=== PATIENT | male | born 1940 | race African-American/Black ===

== ENCOUNTER 2019-04-22 21:21 | Inpatient (IN) | payer MEDICARE, MEDICAID ==
[~2019-04-22] VITALS: Ht 182.9 cm; Wt 56.5 kg
[2019-04-22] MEDS ORDERED: ONDANSETRON HCL 4MG/2ML INJ IV STA (22:08)
[2019-04-22] MEDS ORDERED: MORPHINE SULFATE 4 MG/ML CPJ (NOT FOR IM USE) IV STA (22:08)
[2019-04-22] MEDS ORDERED: VANCOMYCIN 1 G PREMIX 200 ML IV ONE (22:15)
[2019-04-22] MEDS ORDERED: SODIUM CHLORIDE 0.9% 1000ML BAG (SEPSIS BOLUS) IV ONE (22:15)
[2019-04-22] MEDS ORDERED: PIPERACILLIN/TAZ 3.375G PREMIX 50 ML IV ONE (22:15)
[2019-04-22 22:49] LABS: BASOPHILS % 0.2 % (0.0-2.0); EOSINOPHILS % 0.9 % (0.0-5.0); HEMATOCRIT. 30.4 % (42.0-52.0); HEMOGLOBIN. 10.5 g/dL (14.0-18.0); LYMPHOCYTES % 26.5 % (20.0-50.0); MEAN CORPUSCULAR HEMOGLOBIN 34.1 pg (28.0-32.0); MEAN CORPUSCULAR VOLUME 98.5 fL (80.0-94.0); MONOCYTES % 12.5 % (2.0-8.0); NEUTROPHILS % 59.9 % (40.0-76.0); PLATELET 139 x1000/uL (130-400); RED BLOOD CELL COUNT 3.09 mill/uL (4.7-6.1); RED CELL DISTRIBUTION WIDTH 15.6 % (11.6-14.6)
[2019-04-22 22:55] LABS: CHLORIDE 109 mEq/L (98-107)
[2019-04-22 22:57] LABS: PROTHROMBIN TIME 10.1 sec (9.6-11.0)
[2019-04-23 08:00] VITALS: BP 151/50
[2019-04-23 08:48] VITALS: BP 151/50
[2019-04-23] MEDS ORDERED: ONDANSETRON HCL 4MG/2ML INJ IV PRN (09:15)
[2019-04-23] MEDS ORDERED: IPRATROPIUM/ALBUTEROL 0.5-3(2.5)MG/3ML NEB HHN PRN (09:15)
[2019-04-23] MEDS ORDERED: DOCUSATE SODIUM 100MG CAPSULE PO PRN (09:15)
[2019-04-23] MEDS ORDERED: GUAIFENESIN 200MG/10ML SUGAR FREE UDC PO PRN (09:15)
[2019-04-23] MEDS ORDERED: DEXTROSE 50% WATER 50ML SYRINGE IV PRN (09:15)
[2019-04-23] MEDS ORDERED: LORAZEPAM 2MG/ML CPJ IV PRN (09:15)
[2019-04-23] MEDS ORDERED: DIPHENHYDRAMINE 50MG/ML VIAL IV PRN (09:15)
[2019-04-23] MEDS ORDERED: MAGNESIUM/ALUMINUM HYDROXIDE/SIMETHICONE 30ML UDC PO PRN (09:15)
[2019-04-23] MEDS ORDERED: HYDRALAZINE 20MG/ML VIAL IV PRN (09:15)
[2019-04-23] MEDS ORDERED: ACETAMINOPHEN 325MG TABLET PO PRN (09:15)
[2019-04-23] MEDS ORDERED: CARV6.2548 PO (09:32)
[2019-04-23] MEDS ORDERED: ATOR-2 PO (09:32)
[2019-04-23] MEDS ORDERED: RANI150T7 PO (09:32)
[2019-04-23] MEDS ORDERED: ISOS30TA12 PO (09:33)
[2019-04-23] MEDS ORDERED: LISI-604 PO (09:34)
[2019-04-23] MEDS ORDERED: CLOP75TA33 PO (09:34)
[2019-04-23] MEDS ORDERED: ENOXAPARIN 40MG/0.4ML SYR SUBCUT SCH (10:00)
[2019-04-23] MEDS: VANCOMYCIN 750 MG PREMIX 150 ML IV SCH ×2 (10:55→23:33)
[2019-04-23] MEDS: MORPHINE SULFATE 2 MG/ML CPJ (NOT FOR IM USE) IV PRN ×2 (10:57→18:50)
[2019-04-23 12:00] VITALS: BP 162/63
[2019-04-23] MEDS: PIPERACILLIN/TAZ 3.375G PREMIX 50 ML IV SCH ×2 (12:00→18:38)
[2019-04-23] MEDS: BLOOD SUGAR DIAGNOSTIC STRIP TEST SCH ×3 (12:02→21:00)
[2019-04-23] MEDS: CLONIDINE 0.1MG TABLET PO PRN (13:16)
[2019-04-23] MEDS: SODIUM CHLORIDE 0.9% INJ 3ML FLUSH IVF SCH ×2 (13:20→23:31)
[2019-04-23 16:00] VITALS: BP 120/57
[2019-04-23 20:00] VITALS: BP 114/59
[2019-04-24] VITALS: BP 120/61
[2019-04-24] MEDS: PIPERACILLIN/TAZ 3.375G PREMIX 50 ML IV SCH ×4 (02:17→17:44)
[2019-04-24] MEDS: HYDROCODONE/ACETAMINOPHEN 10/325MG TABLET PO PRN ×2 (02:39→21:03)
[2019-04-24 04:00] VITALS: BP 120/66
[2019-04-24] MEDS: SODIUM CHLORIDE 0.9% INJ 3ML FLUSH IVF SCH ×3 (06:51→22:57)
[2019-04-24 07:04] LABS: CHLORIDE 109 mEq/L (98-107)
[2019-04-24] MEDS: BLOOD SUGAR DIAGNOSTIC STRIP TEST SCH ×4 (07:11→21:05)
[2019-04-24 07:19] LABS: BASOPHILS % 0.3 % (0.0-2.0); EOSINOPHILS % 1.8 % (0.0-5.0); HEMOGLOBIN. 9.8 g/dL (14.0-18.0); LYMPHOCYTES % 27.5 % (20.0-50.0); MEAN CORPUSCULAR HEMOGLOBIN 33.2 pg (28.0-32.0); MEAN PLATELET VOLUME 8.2 fl (7.4-10.4); MONOCYTES % 13.5 % (2.0-8.0); NEUTROPHILS % 56.9 % (40.0-76.0); PLATELET 119 x1000/uL (130-400); RED BLOOD CELL COUNT 2.96 mill/uL (4.7-6.1); RED CELL DISTRIBUTION WIDTH 15.1 % (11.6-14.6)
[2019-04-24 08:00] VITALS: BP 144/60
[2019-04-24] MEDS: ENOXAPARIN 30MG/0.3ML SYR SUBCUT SCH (08:34)
[2019-04-24] MEDS: VANCOMYCIN 750 MG PREMIX 150 ML IV SCH (10:05)
[2019-04-24] MEDS: MORPHINE SULFATE 2 MG/ML CPJ (NOT FOR IM USE) IV PRN ×2 (10:07→16:35)
[2019-04-24 12:00] VITALS: BP 130/60
[2019-04-24 16:00] VITALS: BP 156/80
[2019-04-24 20:00] VITALS: BP 166/77
[2019-04-24] MEDS: CLONIDINE 0.1MG TABLET PO PRN (21:04)
[2019-04-25] VITALS: BP 104/52
[2019-04-25] MEDS: VANCOMYCIN 750 MG PREMIX 150 ML IV SCH ×2 (00:20→10:49)
[2019-04-25] MEDS: PIPERACILLIN/TAZ 3.375G PREMIX 50 ML IV SCH ×3 (02:23→10:48)
[2019-04-25 04:00] VITALS: BP 104/57
[2019-04-25] MEDS: SODIUM CHLORIDE 0.9% INJ 3ML FLUSH IVF SCH ×3 (05:57→21:12)
[2019-04-25] MEDS: BLOOD SUGAR DIAGNOSTIC STRIP TEST SCH ×4 (07:20→20:47)
[2019-04-25 08:00] VITALS: BP 141/52
[2019-04-25] MEDS: ENOXAPARIN 30MG/0.3ML SYR SUBCUT SCH (08:25)
[2019-04-25] MEDS ORDERED: IOHEXOL-350 100 ML BOTTLE ONE (10:50)
[2019-04-25] MEDS: HYDROCODONE/ACETAMINOPHEN 10/325MG TABLET PO PRN ×2 (11:35→15:35)
[2019-04-25 12:00] VITALS: BP 156/63
[2019-04-25 16:00] VITALS: BP 123/64
[2019-04-25] MEDS: PIPERACILLIN/TAZOBACTAM 3.375 G in DEXT 5% WATER 100 ML IV SCH ×2 (18:24→23:35)
[2019-04-25 20:00] VITALS: BP 116/52
[2019-04-25] MEDS: VANCOMYCIN 1 G PREMIX 200 ML IV SCH (20:48)
[2019-04-25] MEDS: MORPHINE SULFATE 2 MG/ML CPJ (NOT FOR IM USE) IV PRN (22:22)
[2019-04-26] VITALS: BP 130/63
[2019-04-26 04:00] VITALS: BP 123/55
[2019-04-26] MEDS: PIPERACILLIN/TAZOBACTAM 3.375 G in DEXT 5% WATER 100 ML IV SCH ×4 (05:54→20:22)
[2019-04-26] MEDS: SODIUM CHLORIDE 0.9% INJ 3ML FLUSH IVF SCH ×3 (05:55→22:18)
[2019-04-26] MEDS: BLOOD SUGAR DIAGNOSTIC STRIP TEST SCH ×4 (06:27→20:36)
[2019-04-26 08:00] VITALS: BP 118/58
[2019-04-26] MEDS ORDERED: HEPARIN SODIUM 1,000 UNIT/1ML VIAL IV ONE (09:00)
[2019-04-26] MEDS: ENOXAPARIN 30MG/0.3ML SYR SUBCUT SCH (09:00)
[2019-04-26] MEDS: VANCOMYCIN 1 G PREMIX 200 ML IV SCH ×3 (09:00→22:18)
[2019-04-26] MEDS ORDERED: MIDAZOLAM HCL 2 MG/2 ML VIAL ONE (09:18)
[2019-04-26] MEDS ORDERED: FENTANYL CITRATE/PF 50MCG/ML 2ML VIAL ONE (09:18)
[2019-04-26] MEDS ORDERED: IODIXANOL 320MG/ML 100 ML BOTTLE IV ONE (09:19)
[2019-04-26] MEDS ORDERED: IODIXANOL 320MG/ML 200ML BOTTLE ONE (09:19)
[2019-04-26] MEDS ORDERED: LIDOCAINE HCL 1% 20ML VIAL (Pyxis) INJ ONE (09:20)
[2019-04-26 09:46] LABS: BASOPHILS % 0.3 % (0.0-2.0); EOSINOPHILS % 1.6 % (0.0-5.0); HEMATOCRIT. 30.3 % (42.0-52.0); HEMOGLOBIN. 10.2 g/dL (14.0-18.0); LYMPHOCYTES % 21.9 % (20.0-50.0); MEAN CORPUSCULAR HEMOGLOBIN 32.8 pg (28.0-32.0); MEAN CORPUSCULAR VOLUME 97.8 fL (80.0-94.0); MEAN PLATELET VOLUME 8.4 fl (7.4-10.4); MONOCYTES % 12.5 % (2.0-8.0); NEUTROPHILS % 63.7 % (40.0-76.0); PLATELET 131 x1000/uL (130-400); RED BLOOD CELL COUNT 3.09 mill/uL (4.7-6.1); RED CELL DISTRIBUTION WIDTH 15.1 % (11.6-14.6)
[2019-04-26 09:50] LABS: CHLORIDE 105 mEq/L (98-107)
[2019-04-26] MEDS ORDERED: CEFAZOLIN 1000MG PREMIX 0 ML IV ONE (10:55)
[2019-04-26] MEDS ORDERED: CLOPIDOGREL 75MG TABLET ONE (11:08)
[2019-04-26] MEDS: MORPHINE SULFATE 2 MG/ML CPJ (NOT FOR IM USE) IV PRN ×3 (12:20→20:43)
[2019-04-26] MEDS ORDERED: PIPERACILLIN/TAZOBACTAM 3.375 G in DEXT 5% WATER 100 ML IV SCH ×4 (15:00)
[2019-04-26 16:00] VITALS: BP 120/54
[2019-04-26 20:00] VITALS: BP 130/54
[2019-04-27] VITALS: BP 120/55
[2019-04-27] MEDS: PIPERACILLIN/TAZOBACTAM 3.375 G in DEXT 5% WATER 100 ML IV SCH ×4 (02:38→20:34)
[2019-04-27] MEDS: MORPHINE SULFATE 2 MG/ML CPJ (NOT FOR IM USE) IV PRN ×3 (02:45→21:07)
[2019-04-27 04:00] VITALS: BP 117/54
[2019-04-27] MEDS: SODIUM CHLORIDE 0.9% INJ 3ML FLUSH IVF SCH ×3 (06:20→22:23)
[2019-04-27] MEDS: BLOOD SUGAR DIAGNOSTIC STRIP TEST SCH ×4 (06:20→21:00)
[2019-04-27 07:48] LABS: BASOPHILS % 0.6 % (0.0-2.0); EOSINOPHILS % 1.6 % (0.0-5.0); HEMATOCRIT. 28.9 % (42.0-52.0); HEMOGLOBIN. 9.8 g/dL (14.0-18.0); LYMPHOCYTES % 20.9 % (20.0-50.0); MEAN CORPUSCULAR HEMOGLOBIN 33.1 pg (28.0-32.0); MEAN CORPUSCULAR VOLUME 97.6 fL (80.0-94.0); MEAN PLATELET VOLUME 8.3 fl (7.4-10.4); MONOCYTES % 12.1 % (2.0-8.0); NEUTROPHILS % 64.8 % (40.0-76.0); PLATELET 120 x1000/uL (130-400); RED BLOOD CELL COUNT 2.96 mill/uL (4.7-6.1); RED CELL DISTRIBUTION WIDTH 15.4 % (11.6-14.6)
[2019-04-27 07:57] LABS: CHLORIDE 103 mEq/L (98-107)
[2019-04-27 08:00] VITALS: BP 136/61
[2019-04-27] MEDS: ENOXAPARIN 30MG/0.3ML SYR SUBCUT SCH (08:06)
[2019-04-27] MEDS: CLOPIDOGREL 75MG TABLET PO SCH (08:06)
[2019-04-27] MEDS ORDERED: GENTAMICIN SULF 40MG/ML 2ML VIAL ONE (08:50)
[2019-04-27] MEDS ORDERED: LIDOCAINE HCL 1% 20ML VIAL (Pyxis) INJ ONE (08:50)
[2019-04-27] MEDS ORDERED: BUPIVACAINE HCL/PF 0.5% (5MG/ML) 10ML ONE (08:51)
[2019-04-27] MEDS ORDERED: BACITRACIN 50,000 UNITS/VIAL ONE ×2 (08:51→08:58)
[2019-04-27] MEDS ORDERED: SUCCINYLCHOLINE CHLORIDE 200MG/10ML IV ONE (09:10)
[2019-04-27] MEDS ORDERED: PROPOFOL 200MG/20ML VIAL IV ONE (09:10)
[2019-04-27] MEDS ORDERED: MIDAZOLAM HCL 2 MG/2 ML VIAL ONE (09:10)
[2019-04-27] MEDS ORDERED: MORPHINE SULFATE 2 MG/ML CPJ (NOT FOR IM USE) IV PRN (10:00)
[2019-04-27] MEDS ORDERED: HYDROMORPHONE HCL/PF 2MG/ML CPJ IV PRN (10:00)
[2019-04-27] MEDS ORDERED: ONDANSETRON HCL 4MG/2ML INJ IV PRN (10:00)
[2019-04-27] MEDS ORDERED: SODIUM CHLORIDE 0.9% 1,000 ML IV ONE (10:00)
[2019-04-27 12:00] VITALS: BP 145/66
[2019-04-27] MEDS: VANCOMYCIN 1 G PREMIX 200 ML IV SCH ×2 (12:46→22:22)
[2019-04-27 16:00] VITALS: BP 129/61
[2019-04-27 20:00] VITALS: BP 132/54
[2019-04-28] VITALS (7 sets, daily range): BP systolic 132–157; BP diastolic 61–74
[2019-04-28] MEDS: PIPERACILLIN/TAZOBACTAM 3.375 G in DEXT 5% WATER 100 ML IV SCH ×3 (04:16→15:26)
[2019-04-28] MEDS: BLOOD SUGAR DIAGNOSTIC STRIP TEST SCH ×3 (06:50→16:53)
[2019-04-28 06:53] LABS: BASOPHILS % 0.2 % (0.0-2.0); EOSINOPHILS % 1.1 % (0.0-5.0); HEMATOCRIT. 30.4 % (42.0-52.0); HEMOGLOBIN. 10.5 g/dL (14.0-18.0); LYMPHOCYTES % 13.8 % (20.0-50.0); MEAN CORPUSCULAR VOLUME 98.4 fL (80.0-94.0); MEAN PLATELET VOLUME 8.8 fl (7.4-10.4); MONOCYTES % 9.8 % (2.0-8.0); NEUTROPHILS % 75.1 % (40.0-76.0); PLATELET 119 x1000/uL (130-400); RED BLOOD CELL COUNT 3.09 mill/uL (4.7-6.1); RED CELL DISTRIBUTION WIDTH 15.3 % (11.6-14.6)
[2019-04-28] MEDS: SODIUM CHLORIDE 0.9% INJ 3ML FLUSH IVF SCH ×2 (07:08→13:33)
[2019-04-28 07:33] LABS: CHLORIDE 102 mEq/L (98-107)
[2019-04-28] MEDS: ENOXAPARIN 30MG/0.3ML SYR SUBCUT SCH (08:55)
[2019-04-28] MEDS: CLOPIDOGREL 75MG TABLET PO SCH (08:55)
[2019-04-28] MEDS: VANCOMYCIN 1 G PREMIX 200 ML IV SCH (10:16)
[2019-04-28] MEDS ORDERED: MORPHINE SULFATE 2 MG/ML CPJ (NOT FOR IM USE) IV PRN (10:30)
[2019-04-28] MEDS: HYDROCODONE/ACETAMINOPHEN 10/325MG TABLET PO PRN ×2 (10:53→14:58)
== END 2019-04-28 20:15 | disposition home health service (06) | DRG 181 ==
LOC: ER 21:21 → 6EST 04-23 00:01 → EDBEDREQTM 04-23 00:06 → EDBEDREQ 04-23 00:06 → EDBEDREQSVC 04-23 00:06 → ENRESERV 04-23 07:28
PROVIDERS: ADMIT Internal Medicine; ATTEND Internal Medicine
PROC: 047L3DZ Dilation of Left Femoral Artery with Intraluminal Device, Percutaneous Approach (ICD-10-PCS; 2019-04-26)
PROC: B41G1ZZ Fluoroscopy of Left Lower Extremity Arteries using Low Osmolar Contrast (ICD-10-PCS; 2019-04-26)
PROC: B41G1ZZ Fluoroscopy of Left Lower Extremity Arteries using Low Osmolar Contrast (ICD-10-PCS; 2019-04-26)
PROC: 04CL3ZZ Extirpation of Matter from Left Femoral Artery, Percutaneous Approach (ICD-10-PCS; 2019-04-26)
PROC: 04CN3ZZ Extirpation of Matter from Left Popliteal Artery, Percutaneous Approach (ICD-10-PCS; 2019-04-26)
PROC: 0Y6S0Z1 Detachment at Left 2nd Toe, High, Open Approach (ICD-10-PCS; principal; 2019-04-27)
PROC: 0Y6U0Z1 Detachment at Left 3rd Toe, High, Open Approach (ICD-10-PCS; 2019-04-27)
DX: E11.52 Type 2 diabetes mellitus with diabetic peripheral angiopathy with gangrene (principal); I96 Gangrene, not elsewhere classified; E11.69 Type 2 diabetes mellitus with other specified complication; L03.116 Cellulitis of left lower limb; M86.8X7 Other osteomyelitis, ankle and foot; I10 Essential (primary) hypertension; Z89.429 Acquired absence of other toe(s), unspecified side; Z79.899 Other long term (current) drug therapy
CPT/HCPCS: 36415; 37227; 71045; 73630; 73721; 75635; 75710; 80048; 80202; 82962; 83605; 84145; 87070; 87075; 87077; 87186; 88305; 88311; 93005; 93923; 97116; 97162; 99285; C1725; C1760; C1769; C1876; C1885; C1887; C1893; C1894; J0330; J0690; J1580; J1644; J1650; J2060; J2250; J2270; J2405; J2543; J2704; J3010; J3370; J3490; J7030; J7040; J7060; Q9967

== ENCOUNTER 2021-06-15 07:07 | Inpatient (IN) | payer MEDICARE, MEDICAID ==
[~2021-06-15] VITALS: Ht 165.1 cm; Wt 58.5 kg
[~2021-06-15 07:07] MED LIST: ATOR-2 PO; CARV6.2548 PO; CLOP75TA33 PO; ISOS30TA12 PO; LISI20TA31 PO; RANI150T7 PO
[2021-06-15 08:24] LABS: BASOPHILS % 0.3 % (0.0-2.0); EOSINOPHILS % 0.4 % (0.0-5.0); HEMATOCRIT. 36.6 % (42.0-52.0); HEMOGLOBIN. 12.5 g/dL (14.0-18.0); LYMPHOCYTES % 22.9 % (20.0-50.0); MEAN CORPUSCULAR HEMOGLOBIN 33.8 pg (28.0-32.0); MEAN CORPUSCULAR VOLUME 98.7 fL (80.0-94.0); MEAN PLATELET VOLUME 8.4 fl (7.4-10.4); MONOCYTES % 7.5 % (2.0-8.0); NEUTROPHILS % 68.9 % (40.0-76.0); PLATELET 138 x1000/uL (130-400); RED BLOOD CELL COUNT 3.71 mill/uL (4.7-6.1); RED CELL DISTRIBUTION WIDTH 15.1 % (11.6-14.6)
[2021-06-15 08:29] LABS: CHLORIDE 108 mEq/L (98-107)
[2021-06-15] MEDS ORDERED: ASPIRIN 81MG TABLET PO NR (09:15)
[2021-06-15] MEDS: CARVEDILOL 6.25 MG TABLET PO SCH ×2 (11:45→22:42)
[2021-06-15] MEDS: ISOSORBIDE MONONITRATE 30MG TABLET SR 24HR PO SCH (11:45)
[2021-06-15 21:30] VITALS: BP 153/81
[2021-06-15] MEDS ORDERED: METO-396 PO (22:22)
[2021-06-15] MEDS: ATORVASTATIN CALCIUM 40MG TABLET PO SCH (22:40)
[2021-06-16] VITALS: BP 130/70
[2021-06-16 04:00] VITALS: BP 151/75
[2021-06-16] MEDS: ACETAMINOPHEN 325MG TABLET PO PRN ×2 (04:20→08:37)
[2021-06-16 08:00] VITALS: BP 174/51
[2021-06-16] MEDS: ASPIRIN 81MG TABLET PO SCH (08:36)
[2021-06-16] MEDS: CARVEDILOL 6.25 MG TABLET PO SCH ×2 (08:36→21:18)
[2021-06-16] MEDS: LISINOPRIL 20MG TABLET PO SCH (08:37)
[2021-06-16] MEDS: METOPROLOL TARTRATE 25MG TABLET PO SCH ×2 (08:37→21:18)
[2021-06-16] MEDS: ISOSORBIDE MONONITRATE 30MG TABLET SR 24HR PO SCH (08:37)
[2021-06-16] MEDS: FAMOTIDINE 20MG TABLET PO SCH (08:38)
[2021-06-16] MEDS: CLOPIDOGREL 75MG TABLET PO SCH (08:38)
[2021-06-16] MEDS ORDERED: MEDICATION NOT ON FORMULARY EA (Metoprolol Succinate 1 TAB) PO SCH (09:00)
[2021-06-16] MEDS ORDERED: NITROGLYCERIN 50MCG/ML 10ML VIAL (CATH LAB) IV ONE (10:00)
[2021-06-16] MEDS ORDERED: NICARDIPINE 100MCG/ML 10ML VIAL (CATH LAB) IV ONE (10:00)
[2021-06-16] MEDS ORDERED: HEPARIN SODIUM 1,000 UNIT/1ML VIAL IV ONE (10:00)
[2021-06-16 11:31] VITALS: BP 152/53
[2021-06-16 12:36] LABS: BASOPHILS % 0.3 % (0.0-2.0); EOSINOPHILS % 0.8 % (0.0-5.0); HEMATOCRIT. 35.3 % (42.0-52.0); HEMOGLOBIN. 12.1 g/dL (14.0-18.0); LYMPHOCYTES % 24.8 % (20.0-50.0); MEAN CORPUSCULAR HEMOGLOBIN 33.6 pg (28.0-32.0); MEAN CORPUSCULAR VOLUME 98.1 fL (80.0-94.0); MEAN PLATELET VOLUME 8.8 fl (7.4-10.4); MONOCYTES % 10.6 % (2.0-8.0); NEUTROPHILS % 63.5 % (40.0-76.0); PLATELET 146 x1000/uL (130-400)
[2021-06-16 12:44] LABS: INR 1.1; PROTHROMBIN TIME 11.7 sec (9.6-11.0)
[2021-06-16 13:15] LABS: CHLORIDE 107 mEq/L (98-107)
[2021-06-16 15:30] VITALS: BP 131/77
[2021-06-16 17:13] LABS: GENTAMICIN TROUGH < 0.2 ug/mL (<2.0)
[2021-06-16 20:00] VITALS: BP 130/74
[2021-06-16] MEDS: ATORVASTATIN CALCIUM 40MG TABLET PO SCH (21:17)
[2021-06-17] VITALS (14 sets, daily range): BP systolic 113–175; BP diastolic 48–92
[2021-06-17] MEDS: ISOSORBIDE MONONITRATE 30MG TABLET SR 24HR PO SCH (09:00)
[2021-06-17] MEDS: ASPIRIN 81MG TABLET PO SCH (09:00)
[2021-06-17] MEDS: METOPROLOL TARTRATE 25MG TABLET PO SCH (09:00)
[2021-06-17] MEDS: FAMOTIDINE 20MG TABLET PO SCH (09:00)
[2021-06-17] MEDS: CARVEDILOL 6.25 MG TABLET PO SCH (09:00)
[2021-06-17] MEDS: CLOPIDOGREL 75MG TABLET PO SCH (09:00)
[2021-06-17] MEDS: LISINOPRIL 20MG TABLET PO SCH (10:09)
[2021-06-17] MEDS ORDERED: VERAPAMIL HCL 2.5 MG/1 ML 2ML VIAL IV ONE (10:39)
[2021-06-17] MEDS ORDERED: LIDOCAINE HCL 1% 20ML VIAL (Pyxis) INJ ONE (10:39)
[2021-06-17] MEDS ORDERED: IODIXANOL 320MG/ML 100 ML BOTTLE IV ONE (10:39)
[2021-06-17] MEDS ORDERED: FENTANYL CITRATE/PF 50MCG/ML 2ML VIAL ONE (10:46)
[2021-06-17] MEDS ORDERED: MIDAZOLAM HCL 2 MG/2 ML VIAL ONE (10:46)
[2021-06-17] MEDS ORDERED: HYDRALAZINE 20MG/ML VIAL ONE (11:51)
[2021-06-17] MEDS ORDERED: ATROPINE SULFATE 1MG/10ML SYR IV PRN (12:30)
[2021-06-17] MEDS ORDERED: AMLODIPINE 5MG TABLET PO SCH (13:30)
[2021-06-17] MEDS ORDERED: HYDRALAZINE 20MG/ML VIAL IV NR (16:10)
[2021-06-17] MEDS ORDERED: COR6 PO (17:21)
[2021-06-17] MEDS ORDERED: ISOS30TA91 PO (17:21)
[2021-06-17] MEDS ORDERED: ASPI-1406 MT (17:21)
[2021-06-17] MEDS ORDERED: AMLO5TAB88 PO (17:21)
== END 2021-06-17 21:15 | disposition home health service (06) | DRG 192 ==
LOC: ER 07:07 → 6WST 09:14 → EDBEDREQ 09:17 → ENRESERV 20:05
PROVIDERS: ADMIT Family Medicine; ATTEND Family Medicine
PROC: 4A023N7 Measurement of Cardiac Sampling and Pressure, Left Heart, Percutaneous Approach (ICD-10-PCS; principal; 2021-06-17)
PROC: B211YZZ Fluoroscopy of Multiple Coronary Arteries using Other Contrast (ICD-10-PCS; 2021-06-17)
PROC: B218YZZ Fluoroscopy of Left Internal Mammary Bypass Graft using Other Contrast (ICD-10-PCS; 2021-06-17)
PROC: B212YZZ Fluoroscopy of Single Coronary Artery Bypass Graft using Other Contrast (ICD-10-PCS; 2021-06-17)
PROC: B41FYZZ Fluoroscopy of Right Lower Extremity Arteries using Other Contrast (ICD-10-PCS; 2021-06-17)
DX: T82.855A Stenosis of coronary artery stent, initial encounter (principal); I21.4 Non-ST elevation (NSTEMI) myocardial infarction; C22.8 Malignant neoplasm of liver, primary, unspecified as to type; C14.0 Malignant neoplasm of pharynx, unspecified; C34.90 Malignant neoplasm of unspecified part of unspecified bronchus or lung; J44.9 Chronic obstructive pulmonary disease, unspecified; I11.0 Hypertensive heart disease with heart failure; I50.9 Heart failure, unspecified; E11.9 Type 2 diabetes mellitus without complications; E78.5 Hyperlipidemia, unspecified; R00.1 Bradycardia, unspecified; Z20.822 Contact with and (suspected) exposure to COVID-19; I16.0 Hypertensive urgency; I25.10 Atherosclerotic heart disease of native coronary artery without angina pectoris; T50.996A Underdosing of other drugs, medicaments and biological substances, initial encounter; Y83.1 Surgical operation with implant of artificial internal device as the cause of abnormal reaction of the patient, or of later complication, without mention of misadventure at the time of the procedure; Y92.89 Other specified places as the place of occurrence of the external cause; Z85.038 Personal history of other malignant neoplasm of large intestine; Z95.1 Presence of aortocoronary bypass graft; Z95.5 Presence of coronary angioplasty implant and graft
CPT/HCPCS: 36415; 71045; 80048; 80053; 80170; 83880; 84484; 85025; 87426; 93005; 93306; 93459; 99285; C1760; C1769; C1887; C1893; J0360; J1644; J2250; J3010; J3490; Q9967

== ENCOUNTER 2023-04-10 10:01 | Inpatient (IN) | payer MEDICARE, MEDICAID ==
[~2023-04-10] VITALS: Ht 167.6 cm; Wt 69.4 kg
[~2023-04-10 10:01] MED LIST changes: +AMLO5TAB88 PO; +ASPI-1406 MT; +COR6 PO; -ISOS30TA12 PO; +ISOS30TA91 PO; +METO-396 PO
[2023-04-10] MEDS ORDERED: SODIUM CHLORIDE 0.9% 1,000 ML IV ONE (10:30)
[2023-04-10 11:07] LABS: HEMATOCRIT. 37.6 % (42.0-52.0); HEMOGLOBIN. 12.3 g/dL (14.0-18.0); MEAN CORPUSCULAR HEMOGLOBIN 33.5 pg (28.0-32.0); MEAN CORPUSCULAR HGB CONC 32.7 g/dL (31.0-37.0); MEAN CORPUSCULAR VOLUME 102.5 fL (80.0-94.0); MEAN PLATELET VOLUME 9.8 fl (7.4-10.4); PLATELET 61 x1000/uL (130-400); RED BLOOD CELL COUNT 3.67 mill/uL (4.7-6.1); WHITE BLOOD COUNT 5.8 x1000/uL (4.5-11.0)
[2023-04-10 11:08] LABS: CHLORIDE 109 mEq/L (98-107); INDEX HEMOLYSI 4 (1-3); INDEX ICTERIC 3 (1-4); INDEX LIPEMIC 1 (1-3); SODIUM 140 mEq/L (136-145)
[2023-04-10 11:08] LABS: DIFFERENTIAL COMMENT 1
[2023-04-10 11:19] LABS: ALANINE AMINOTRANSFERASE 140 IU/L (13-61); ASPARTATE AMINOTRANSFERASE 276 IU/L (15-37); BILIRUBIN TOTAL 7.9 mg/dL (0.1-1.0); CALCIUM 9.6 mg/dL (8.5-10.1); CARBON DIOXIDE 22 mEq/L (21-32); CREATININE 1.2 mg/dL (0.6-1.3); GLUCOSE 89 mg/dL (70-105); NT PRO B-TYPE NATRIURETIC PEP 1838 pg/mL (5-125); UREA NITROGEN BLOOD 38 mg/dL (7-21)
[2023-04-10 11:24] LABS: POTASSIUM 5.3 mEq/L (3.5-5.1); TROPONIN I HIGH SENSITIVITY 160 ng/L (<78)
[2023-04-10 11:30] LABS: ANISOCYTOSIS 2+; PLATELET ESTIMATE DECREASED
[2023-04-10] MEDS ORDERED: FUROSEMIDE 40MG/4ML VIAL IV NR (11:58)
[2023-04-10] MEDS ORDERED: INSULIN REGULAR (HUMULIN R) 300UNITS/3ML VIAL IV NR (12:00)
[2023-04-10] MEDS ORDERED: CALCIUM CHLORIDE 1GM/10ML SYR IV NR (12:00)
[2023-04-10] MEDS ORDERED: DEXTROSE 50% WATER 50ML SYRINGE IV NR (12:00)
[2023-04-10] MEDS ORDERED: ALBUTEROL (0.083%) 2.5MG/3ML NEB HHN NR (12:00)
[2023-04-10] MEDS ORDERED: ASPIRIN 325MG EC TABLET PO NR (12:00)
[2023-04-10] MEDS ORDERED: SODIUM BICARBONATE 8.4% 1 MEQ/ML 50ML SYR IV NR (12:00)
[2023-04-10] MEDS ORDERED: ONDANSETRON HCL 4MG/2ML INJ IV PRN (15:45)
[2023-04-10] MEDS ORDERED: DOCUSATE SODIUM 100MG CAPSULE PO PRN (15:45)
[2023-04-10] MEDS ORDERED: ACETAMINOPHEN 325MG TABLET PO PRN ×2 (15:45)
[2023-04-10] MEDS ORDERED: IPRATROPIUM/ALBUTEROL 0.5-3(2.5)MG/3ML NEB HHN PRN (15:45)
[2023-04-10] MEDS ORDERED: GUAIFENESIN 200MG/10ML SUGAR FREE UDC PO PRN (15:45)
[2023-04-10 15:48] LABS: TROPONIN I HIGH SENSITIVITY 184 ng/L (<78)
[2023-04-10 16:00] VITALS: BP 145/70; PULSE 74; RESP 18; TEMP 97
[2023-04-10] MEDS ORDERED: DEXT 5%/0.45% NACL 1000ML 1,000 ML IV ONE (16:15)
[2023-04-10] MEDS: THIAMINE HCL 100MG TABLET PO SCH (16:25)
[2023-04-10 17:50] VITALS: BP 144/70; PULSE 75; RESP 18; TEMP 97.5
[2023-04-10 20:00] VITALS: BP 122/40; PULSE 87; RESP 18; TEMP 98
[2023-04-10] MEDS: APIXABAN 5 MG TABLET PO SCH (21:33)
[2023-04-10] MEDS: PANTOPRAZOLE SODIUM 40 MG/VIAL IV SCH (21:33)
[2023-04-10] MEDS: ATORVASTATIN CALCIUM 40MG TABLET PO SCH (21:33)
[2023-04-10] MEDS ORDERED: DEXTROSE 5% WATER 1,000 ML IV ONE (22:00)
[2023-04-10 22:18] LABS: POTASSIUM 4.2 mEq/L (3.5-5.1)
[2023-04-10 22:35] LABS: CLARITY URINE CLEAR (CLEAR); COLOR URINE DARK YELLOW (YELLOW); GLUCOSE URINE NEGATIVE (NEGATIVE); KETONES URINE NEGATIVE (NEGATIVE); LEUKOCYTE ESTERASE URINE NEGATIVE (NEGATIVE); NITRITE URINE NEGATIVE (NEGATIVE); OCCULT BLOOD URINE NEGATIVE (NEGATIVE); PH URINE 5.5 (4.5-8.0); PROTEIN URINE NEGATIVE (NEGATIVE); SPECIFIC GRAVITY URINE 1.013 (1.005-1.030)
[2023-04-10] MEDS ORDERED: SERT25TA74 PO (23:14)
[2023-04-10] MEDS ORDERED: NITR0.4T49 SL (23:14)
[2023-04-11] VITALS: BP 98/47; PULSE 75; RESP 18; TEMP 98.3
[2023-04-11 00:47] LABS: INDEX HEMOLYSI 2 (1-3)
[2023-04-11 01:05] LABS: CREATINE KINASE 1162 IU/L (39-308)
[2023-04-11 01:20] LABS: TROPONIN I HIGH SENSITIVITY 456 ng/L (<78)
[2023-04-11 02:00] LABS: D-DIMER 19.47 mg/L FEU (<0.50); INR 2.3; PROTHROMBIN TIME 23.4 sec (9.6-11.0)
[2023-04-11 04:00] VITALS: BP 104/52; PULSE 75; RESP 18; TEMP 98.3
[2023-04-11 07:59] LABS: HEMATOCRIT. 31.3 % (42.0-52.0); HEMOGLOBIN. 10.4 g/dL (14.0-18.0); MEAN CORPUSCULAR HEMOGLOBIN 33.8 pg (28.0-32.0); MEAN CORPUSCULAR HGB CONC 33.3 g/dL (31.0-37.0); MEAN CORPUSCULAR VOLUME 101.5 fL (80.0-94.0); MEAN PLATELET VOLUME 9.3 fl (7.4-10.4); RED BLOOD CELL COUNT 3.09 mill/uL (4.7-6.1); RED CELL DISTRIBUTION WIDTH 20.7 % (11.6-14.6); WHITE BLOOD COUNT 6.6 x1000/uL (4.5-11.0)
[2023-04-11 08:00] VITALS: BP 122/62; PULSE 83; RESP 20; TEMP 96.6
[2023-04-11 08:07] LABS: DIFFERENTIAL COMMENT 1
[2023-04-11 08:10] LABS: PLATELET 39 x1000/uL (130-400)
[2023-04-11 09:00] LABS: CHLORIDE 109 mEq/L (98-107); INDEX HEMOLYSI 2 (1-3); INDEX ICTERIC 3 (1-4); INDEX LIPEMIC 1 (1-3); POTASSIUM 3.9 mEq/L (3.5-5.1); SODIUM 141 mEq/L (136-145)
[2023-04-11 09:29] LABS: ALANINE AMINOTRANSFERASE 107 IU/L (13-61); ALBUMIN 2.3 g/dL (3.4-5.0); ASPARTATE AMINOTRANSFERASE 209 IU/L (15-37); BILIRUBIN DIRECT 4.4 mg/dL (0.0-0.2); BILIRUBIN TOTAL 6.3 mg/dL (0.1-1.0); CALCIUM 8.6 mg/dL (8.5-10.1); CARBON DIOXIDE 27 mEq/L (21-32); CHOLESTEROL 120 mg/dL (<200); CREATINE KINASE 1212 IU/L (39-308); CREATININE 1.3 mg/dL (0.6-1.3); GLUCOSE 163 mg/dL (70-105); HDL CHOLESTEROL 15 mg/dL (40-59); LDL CHOLESTEROL 94 mg/dL (5-100); PROTEIN TOTAL 4.7 g/dL (6.0-8.3); T4 FREE 0.92 ng/dL (0.76-1.46); TRIGLYCERIDE 95 mg/dL (0-150); UREA NITROGEN BLOOD 48 mg/dL (7-21)
[2023-04-11] MEDS ORDERED: DIATR MEGLU/DIATRIZOATE SOLN 30ML PO NR (09:30)
[2023-04-11 09:35] LABS: TROPONIN I HIGH SENSITIVITY 480 ng/L (<78)
[2023-04-11] MEDS: THIAMINE HCL 100MG TABLET PO SCH (10:26)
[2023-04-11] MEDS: PANTOPRAZOLE SODIUM 40 MG/VIAL IV SCH (10:26)
[2023-04-11] MEDS: APIXABAN 5 MG TABLET PO SCH (10:27)
[2023-04-11] MEDS: ISOSORBIDE MONONITRATE 30MG TABLET SR 24HR PO SCH (10:27)
[2023-04-11] MEDS: FUROSEMIDE 40MG/4ML VIAL IVP SCH (10:27)
[2023-04-11] MEDS: AMLODIPINE 5MG TABLET PO SCH (10:27)
[2023-04-11] MEDS: ASPIRIN 81MG TABLET PO SCH (10:28)
[2023-04-11 12:00] VITALS: BP 120/91; PULSE 71; RESP 18; TEMP 97.5
[2023-04-11 12:49] LABS: *AMPHETAMINES SCREEN URINE NEGATIVE (NEGATIVE); *BARBITURATES SCREEN URINE NEGATIVE (NEGATIVE); *BENZODIAZEPINES SCREEN URINE NEGATIVE (NEGATIVE); *COCAINE SCREEN URINE NEGATIVE (NEGATIVE); CANNABINOID URINE SCREEN PRESUMTIVE POSITIVE (NEGATIVE); ECSTASY MDMA SCREEN URINE NEGATIVE (NEGATIVE); OPIATES URINE SCREEN NEGATIVE (NEGATIVE); PHENCYCLIDINE URINE SCREEN NEGATIVE (NEGATIVE)
[2023-04-11 13:23] LABS: PLATELET ESTIMATE MARKEDLY DECREASED
[2023-04-11 13:24] LABS: ANISOCYTOSIS 1+
[2023-04-11 16:00] VITALS: BP 105/68; PULSE 75; RESP 18; TEMP 97.4
[2023-04-11 20:00] VITALS: BP 100/58; PULSE 69; RESP 18; TEMP 97.9
[2023-04-11] MEDS: ATORVASTATIN CALCIUM 40MG TABLET PO SCH (21:15)
[2023-04-12] VITALS: BP 88/56; PULSE 70; RESP 19; TEMP 97.5
[2023-04-12 04:00] VITALS: BP 88/68; PULSE 70; RESP 18; TEMP 99.3
[2023-04-12 08:00] VITALS: BP 120/79; PULSE 66; RESP 18; TEMP 98.3
[2023-04-12] MEDS: FUROSEMIDE 40MG/4ML VIAL IVP SCH (09:20)
[2023-04-12] MEDS: ASPIRIN 81MG TABLET PO SCH (09:20)
[2023-04-12] MEDS: PANTOPRAZOLE SODIUM 40 MG/VIAL IV SCH (09:20)
[2023-04-12] MEDS: ISOSORBIDE MONONITRATE 30MG TABLET SR 24HR PO SCH (09:21)
[2023-04-12] MEDS: THIAMINE HCL 100MG TABLET PO SCH (09:21)
[2023-04-12] MEDS: AMLODIPINE 5MG TABLET PO SCH (09:22)
[2023-04-12 12:00] VITALS: BP 119/71; PULSE 74; RESP 20; TEMP 96.9
[2023-04-12 12:49] LABS: BASOPHILS % 0.3 % (0.0-2.0); EOSINOPHILS % 0.5 % (0.0-5.0); HEMATOCRIT. 35.3 % (42.0-52.0); HEMOGLOBIN. 11.8 g/dL (14.0-18.0); LYMPHOCYTES % 8.7 % (20.0-50.0); MEAN CORPUSCULAR HEMOGLOBIN 33.8 pg (28.0-32.0); MEAN CORPUSCULAR HGB CONC 33.4 g/dL (31.0-37.0); MEAN CORPUSCULAR VOLUME 101.1 fL (80.0-94.0); MEAN PLATELET VOLUME 10.2 fl (7.4-10.4); MONOCYTES % 9.1 % (2.0-8.0); NEUTROPHILS % 81.4 % (40.0-76.0); RED BLOOD CELL COUNT 3.49 mill/uL (4.7-6.1); RED CELL DISTRIBUTION WIDTH 22.1 % (11.6-14.6); WHITE BLOOD COUNT 3.3 x1000/uL (4.5-11.0)
[2023-04-12 13:03] LABS: DIFFERENTIAL COMMENT 1
[2023-04-12 13:04] LABS: PLATELET 39 x1000/uL (130-400)
[2023-04-12 13:22] LABS: INDEX HEMOLYSI 1 (1-3); INDEX ICTERIC 3 (1-4); INDEX LIPEMIC 1 (1-3)
[2023-04-12 13:30] LABS: CALCIUM 8.4 mg/dL (8.5-10.1); CARBON DIOXIDE 30 mEq/L (21-32); CHLORIDE 106 mEq/L (98-107); CREATININE 1.2 mg/dL (0.6-1.3); GLUCOSE 107 mg/dL (70-105); POTASSIUM 3.3 mEq/L (3.5-5.1); SODIUM 143 mEq/L (136-145); UREA NITROGEN BLOOD 35 mg/dL (7-21)
[2023-04-12 16:00] VITALS: BP 122/74; PULSE 69; RESP 20; TEMP 97.2
[2023-04-12 20:00] VITALS: BP 99/68; PULSE 76; RESP 18; TEMP 98.1
[2023-04-12] MEDS: ATORVASTATIN CALCIUM 40MG TABLET PO SCH (20:09)
[2023-04-13] VITALS: BP 91/51; PULSE 81; RESP 19; TEMP 97.2
[2023-04-13 04:00] VITALS: BP 93/57; PULSE 61; RESP 18; TEMP 97.9
[2023-04-13 06:26] LABS: HEMATOCRIT. 34.9 % (42.0-52.0); HEMOGLOBIN. 12.1 g/dL (14.0-18.0); MEAN CORPUSCULAR HEMOGLOBIN 34.8 pg (28.0-32.0); MEAN CORPUSCULAR HGB CONC 34.5 g/dL (31.0-37.0); MEAN CORPUSCULAR VOLUME 100.9 fL (80.0-94.0); MEAN PLATELET VOLUME 10.6 fl (7.4-10.4); RED BLOOD CELL COUNT 3.46 mill/uL (4.7-6.1); RED CELL DISTRIBUTION WIDTH 21.4 % (11.6-14.6)
[2023-04-13 06:43] LABS: PLATELET 40 x1000/uL (130-400)
[2023-04-13 06:51] LABS: DIFFERENTIAL COMMENT 1
[2023-04-13 08:05] VITALS: BP 92/52; PULSE 84; RESP 18; TEMP 97.8
[2023-04-13 08:11] LABS: CHLORIDE 106 mEq/L (98-107); INDEX HEMOLYSI 2 (1-3); INDEX ICTERIC 3 (1-4); INDEX LIPEMIC 1 (1-3); POTASSIUM 3.9 mEq/L (3.5-5.1); SODIUM 143 mEq/L (136-145)
[2023-04-13 08:19] LABS: CALCIUM 8.7 mg/dL (8.5-10.1); CARBON DIOXIDE 32 mEq/L (21-32); CREATININE 1.3 mg/dL (0.6-1.3); GLUCOSE 111 mg/dL (70-105); UREA NITROGEN BLOOD 34 mg/dL (7-21)
[2023-04-13] MEDS: PANTOPRAZOLE SODIUM 40 MG/VIAL IV SCH (08:53)
[2023-04-13] MEDS: FUROSEMIDE 40MG/4ML VIAL IVP SCH (08:53)
[2023-04-13] MEDS: ISOSORBIDE MONONITRATE 30MG TABLET SR 24HR PO SCH (08:54)
[2023-04-13] MEDS: THIAMINE HCL 100MG TABLET PO SCH (08:55)
[2023-04-13] MEDS: AMLODIPINE 5MG TABLET PO SCH (08:55)
[2023-04-13] MEDS: ASPIRIN 81MG TABLET PO SCH (08:56)
[2023-04-13 10:23] LABS: ANISOCYTOSIS 2+; NUCLEATED RED BLOOD CELLS 1 /100 WBC; OVALOCYTES 1+; PLATELET ESTIMATE MARKEDLY DECREASED
[2023-04-13 10:24] LABS: TARGET CELLS FEW
[2023-04-13 12:10] VITALS: BP 112/76; PULSE 84; RESP 20; TEMP 96.8
[2023-04-13 16:00] VITALS: BP 104/59; PULSE 63; RESP 18; TEMP 97.6
[2023-04-13 20:00] VITALS: BP 109/69; PULSE 92; RESP 16; TEMP 97.7
[2023-04-13] MEDS: ATORVASTATIN CALCIUM 40MG TABLET PO SCH (20:54)
[2023-04-14] VITALS: BP 118/70; PULSE 88; RESP 16; TEMP 97.7
[2023-04-14 04:00] VITALS: BP 139/60; PULSE 85; RESP 16; TEMP 97.1
[2023-04-14 08:00] VITALS: BP 114/58; PULSE 87; RESP 20; TEMP 98
[2023-04-14 08:00] LABS: HEMATOCRIT. 34.2 % (42.0-52.0); HEMOGLOBIN. 11.4 g/dL (14.0-18.0); MEAN CORPUSCULAR HEMOGLOBIN 33.8 pg (28.0-32.0); MEAN CORPUSCULAR HGB CONC 33.4 g/dL (31.0-37.0); MEAN CORPUSCULAR VOLUME 101.2 fL (80.0-94.0); MEAN PLATELET VOLUME 11.4 fl (7.4-10.4); RED BLOOD CELL COUNT 3.38 mill/uL (4.7-6.1); WHITE BLOOD COUNT 3.8 x1000/uL (4.5-11.0)
[2023-04-14 08:26] LABS: DIFFERENTIAL COMMENT 1
[2023-04-14 08:30] LABS: PLATELET 40 x1000/uL (130-400)
[2023-04-14 08:51] LABS: CHLORIDE 106 mEq/L (98-107); INDEX HEMOLYSI 2 (1-3); INDEX ICTERIC 3 (1-4); INDEX LIPEMIC 1 (1-3); POTASSIUM 3.4 mEq/L (3.5-5.1); SODIUM 141 mEq/L (136-145)
[2023-04-14 08:53] LABS: CALCIUM 8.5 mg/dL (8.5-10.1); CARBON DIOXIDE 26 mEq/L (21-32); GLUCOSE 145 mg/dL (70-105); UREA NITROGEN BLOOD 36 mg/dL (7-21)
[2023-04-14 08:59] LABS: CREATININE 1.1 mg/dL (0.6-1.3)
[2023-04-14] MEDS: THIAMINE HCL 100MG TABLET PO SCH (09:06)
[2023-04-14] MEDS: PANTOPRAZOLE SODIUM 40 MG/VIAL IV SCH (09:06)
[2023-04-14] MEDS: ASPIRIN 81MG TABLET PO SCH (09:06)
[2023-04-14] MEDS: FUROSEMIDE 40MG/4ML VIAL IVP SCH (09:06)
[2023-04-14] MEDS: AMLODIPINE 5MG TABLET PO SCH (09:07)
[2023-04-14] MEDS: ISOSORBIDE MONONITRATE 30MG TABLET SR 24HR PO SCH (09:07)
[2023-04-14 12:00] VITALS: BP 114/66; PULSE 78; RESP 18; TEMP 97.4
[2023-04-14 15:40] VITALS: BP 114/66; PULSE 78; TEMP 97.4; O2SAT 97
[2023-04-14 16:00] VITALS: BP 101/50; PULSE 90; RESP 18; TEMP 97.9
[2023-04-14 17:52] LABS: ANISOCYTOSIS 2+; PLATELET ESTIMATE MARKEDLY DECREASED
[2023-04-14] MEDS ORDERED: POTASSIUM CHLORIDE 20MEQ TABLET SR PO NR (18:15)
[2023-04-14] MEDS ORDERED: POTASSIUM CHLORIDE 20MEQ TABLET SR PO ONE (18:23)
[2023-04-14] MEDS ORDERED: CARVEDILOL 3.125 MG TABLET PO SCH (21:00)
== END 2023-04-14 18:50 | disposition hospice, inpatient (51) | DRG 190 ==
LOC: ER 10:01 → EDBEDREQ 12:02 → 8WST 12:49 → EDBEDREQ 12:53 → EDBEDREQTM 12:53
PROVIDERS: ADMIT Internal Medicine; ATTEND Internal Medicine
DX: I21.4 Non-ST elevation (NSTEMI) myocardial infarction (principal); G93.41 Metabolic encephalopathy; E11.649 Type 2 diabetes mellitus with hypoglycemia without coma; D68.59 Other primary thrombophilia; E46 Unspecified protein-calorie malnutrition; I82.412 Acute embolism and thrombosis of left femoral vein; R62.7 Adult failure to thrive; I11.0 Hypertensive heart disease with heart failure; E86.0 Dehydration; I50.9 Heart failure, unspecified; E11.42 Type 2 diabetes mellitus with diabetic polyneuropathy; E11.51 Type 2 diabetes mellitus with diabetic peripheral angiopathy without gangrene; D53.9 Nutritional anemia, unspecified; F03.90 Unspecified dementia, unspecified severity, without behavioral disturbance, psychotic disturbance, mood disturbance, and anxiety; I25.10 Atherosclerotic heart disease of native coronary artery without angina pectoris; Z68.24 Body mass index [BMI] 24.0-24.9, adult; D75.89 Other specified diseases of blood and blood-forming organs; Z85.118 Personal history of other malignant neoplasm of bronchus and lung; Z51.5 Encounter for palliative care; I25.2 Old myocardial infarction; Z79.01 Long term (current) use of anticoagulants; Z85.05 Personal history of malignant neoplasm of liver; Z85.819 Personal history of malignant neoplasm of unspecified site of lip, oral cavity, and pharynx; Z95.1 Presence of aortocoronary bypass graft; Z92.21 Personal history of antineoplastic chemotherapy; Z95.5 Presence of coronary angioplasty implant and graft; Z86.718 Personal history of other venous thrombosis and embolism; Z86.711 Personal history of pulmonary embolism; Z79.899 Other long term (current) drug therapy; Z79.02 Long term (current) use of antithrombotics/antiplatelets; Z89.412 Acquired absence of left great toe
CPT/HCPCS: 36415; 71045; 74177; 80048; 80053; 80061; 80076; 80305; 81003; 82550; 82962; 83036; 83880; 84132; 84153; 84439; 84443; 84481; 84484; 85025; 85379; 92610; 93005; 93306; 93923; 93970; 99291; C1893; C9113; J1815; J1940; J3490; J7030; Q9963; Q9967; G0103